=== PATIENT | female | born 1940 | race African-American/Black ===

== ENCOUNTER → 2016-07-13 | Outpatient (CLI) | payer OTHER ==
--- NOTE | ~2016-07-13 | CR63 ---
[facility] A Service of [facility] & [facility] RADIOLOGY TEXT RESULTS PATIENT: CHIDI PETE LOCATION: [facility] : 42 UNIT #: [id number] AGE: [address]: VIJAY RAUSCH MD SEX: F ORDER DR: [id number] [facility] [address] [address] [place], [place] [address] [id number] O MR#: [id number] Acc #: [id number] NAME: CHIDI PETE : 1940 SEX: F STUDY DATE/TIME: 07/13/2016 13:41 UNIT: [facility] ROOM: STUDY DESCRIPTION: CR Chest 2 View Attending Physician: Vijay Rausch M.D. Referring Physician: Vijay Rausch M.D. Ordering Physician: Vijay Rausch M.D. Primary Care Physician: Vijay Rausch M.D. MEDICAL IMAGING REPORT This report is preliminary unless electronic signature is present EXAM Two-view chest. INDICATION Cough and chest congestion for the past week. PROCEDURE Frontal and lateral views of the chest. COMPARISON STUDIES 06/02/2016 FINDINGS Heart size is normal. No dense consolidation. No visible pneumothorax. IMPRESSION No active process. Dictated by... Patricio Srivastava M.D. THIS IS AN ELECTRONICALLY VERIFIED REPORT Patricio Srivastava M.D. at 07/16/2016 9:45 AM TRACID/mindy TD: 07/13/2016 17:19 JOB #: [id number] MEDICAL IMAGING REPORT Page 1 of 1 COPY
== END | disposition home or self-care (01) ==
LOC: CRAD 13:09
DX: R05 Cough (principal)
CPT/HCPCS: 71020